=== PATIENT | male | born 2000 | race Caucasian/White ===

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

== ENCOUNTER 2018-04-24 09:59 | Day surgery (SDC) | payer OTHER ==
[~2018-04-24 09:59] MED LIST: Buffered Lidocaine 0.9% SYRIN* 5 ML/SYR SYRINGE INTRADERM ONE; Lactated Ringers 1000 ML Bag* 1,000 ML IV SCH; Lidocaine 2% PF * 5 ML VIAL ONE; Propofol* 10 MG/ML 20 ML BTL ONE; Succinylcholine* 20 MG/ML 10 ML VIAL ONE
[2018-04-24] MEDS ORDERED: Midazolam* 1 MG/ML 2 ML VIAL (2 MG) ONE (11:28)
[2018-04-24] MEDS ORDERED: fentaNYL* 50 MCG/ML 2 ML VIAL (100 MCG VIAL) ONE (11:28)
[2018-04-24] MEDS ORDERED: Dexamethasone IV* 4 MG/ML 1 ML (4 MG) ONE (11:42)
[2018-04-24] MEDS ORDERED: Ondansetron INJ* 2 MG/ML VIAL ONE (11:42)
[2018-04-24] MEDS ORDERED: Lidocaine 2% PF * 5 ML VIAL ONE (11:43)
[2018-04-24] MEDS ORDERED: Acetaminophen IV 1GM/100ML * 100 ML ONE (11:46)
[2018-04-24] MEDS ORDERED: diPHENhydraMINE IV* 50 MG/ML 1 ml VIAL (BENADRYL) IV PRN (12:07)
[2018-04-24] MEDS ORDERED: oxyCODONE TAB* 5 MG TAB PO PRN (12:07)
[2018-04-24] MEDS ORDERED: fentaNYL* 50 MCG/ML 2 ML VIAL (100 MCG VIAL) IV PRN (12:07)
[2018-04-24] MEDS ORDERED: Naloxone* 0.4 MG/ML 1 ML VIAL IV PRN (12:07)
[2018-04-24] MEDS ORDERED: Ibuprofen PED LIQ 100 MG/5 ML UDC ONE (13:04)
[2018-04-24 13:06] VITALS: BP 141/81
--- NOTE | 2018-04-24 22:02 | OP ---
DATE OF OPERATION: 04/24/18 - SDS DATE OF : [birth year] SURGEON: Kurtis Yousif MD ANESTHESIA: General endotracheal anesthesia. PRE-OP DIAGNOSIS: Tonsillar hypertrophy. POST-OP DIAGNOSIS: Tonsillar hypertrophy. OPERATIVE PROCEDURE: Tonsillectomy. COMPLICATIONS: None. SPECIMEN: Tonsils. ESTIMATED BLOOD LOSS: Minimal. DESCRIPTION OF PROCEDURE: The patient was taken to the operating room and placed in the supine position on the operating table. General anesthesia was induced and he was orotracheally intubated, turned and draped for the surgery. Ty-Vernon mouth gag was inserted, retraction was applied, suspended from Brewer stand. Right tonsil was grasped, manual traction was applied. Using Bovie cautery, it was dissected along its capsule, removing it from the underlying pharyngeal musculature. Left tonsil was grasped, manual traction was applied. Again, using Bovie cautery, it was dissected along its capsule, removing it from the underlying pharyngeal musculature. Hemostasis was ensured in both tonsillar fossae using the suction cautery. Adenoid bed was examined and he did not have any significant adenoid tissue. Orogastric tube was inserted into the stomach. Stomach contents were suctioned. Ty-Vernon mouth gag was released and removed. The patient tolerated this procedure well, no complications, and transferred to the recovery room in stable condition. [id number]/[facility] #: [id number] MTDD
== END 2018-04-24 14:52 | disposition home or self-care (01) ==
LOC: OR 09:59
PROVIDERS: ATTEND Otolaryngology
DX: J35.1 Hypertrophy of tonsils (principal); G47.33 Obstructive sleep apnea (adult) (pediatric)
CPT/HCPCS: 88304; J0330; J1100; J2250; J2405; J2704; J3010